=== PATIENT | female | born 1970 | race Caucasian/White ===

== ENCOUNTER → 2024-10-16 | Emergency (ER) | payer OTHER ==
[~2024-10-16] VITALS: Ht 154.9 cm; Wt 52.2 kg
[2024-10-16 18:08] VITALS: BP 135/80; TEMP 98.3; O2SAT 98
== END | disposition left against medical advice (07) ==
LOC: ER 17:58
DX: S61.219A Laceration without foreign body of unspecified finger without damage to nail, initial encounter (principal); Z53.21 Procedure and treatment not carried out due to patient leaving prior to being seen by health care provider; X58.XXXA Exposure to other specified factors, initial encounter; Y93.89 Activity, other specified; Y92.89 Other specified places as the place of occurrence of the external cause; Y99.8 Other external cause status